=== PATIENT | female | born 1990 | race American Indian/Alaskan Native ===

== ENCOUNTER → 2025-05-26 | Outpatient (CLI) | payer MEDICAID, SELFPAY ==
--- NOTE | 2025-05-26 15:30 | XR_ITS ---
Examination: Transvaginal ultrasound of the pelvis, complete Technique: Transvaginal sonographic images pelvis performed using cyr scale imaging Exam date and time: May 26, 2025, 1541 hours. INDICATIONS: Irregular heavy menses 3 years. 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
== END | disposition home or self-care (01) ==
PROVIDERS: PCP Nurse Practitioner Family; Referring Provider Nurse Practitioner Family; Visit Provider Nurse Practitioner Family
DX: D25.9 Leiomyoma of uterus, unspecified (principal)
CPT/HCPCS: 76830